=== PATIENT | female | born 1950 | race Caucasian/White ===

== ENCOUNTER 2018-11-27 15:22 | Day surgery (SDC) | payer MEDICARE, OTHER ==
[~2018-11-27] VITALS: Ht 160 cm; Wt 57.2 kg
[2018-11-27] VITALS (9 sets, daily range): BP systolic 115–131; BP diastolic 66–78; PULSE 60–85; RESP 17–18; Ht 160 cm; Wt 57.2 kg
[~2018-11-27 15:22] MED LIST: ALPR0.254 PO; CARI350T PO; DIME25TA PO; ESTR1TAB23 PO; HYDR2TAB3 PO; LEVO25TA PO; LORA0.5T PO; PREG25CA PO; PROG100C11 PO; RISP0.5T3 PO; THIO100T PO; THY90 PO; THYR120T PO; TRAM50TA2 PO; UDLOM GTB; VALA500T PO
[2018-11-27] MEDS ORDERED: HYDROmorphONE 0.5 MG/0.5 ML SYG IV STA (16:17)
[2018-11-27] MEDS ORDERED: HYDROmorphONE 1 MG/ML SYG IV STA (16:50)
[2018-11-27] MEDS ORDERED: ALBUTEROL 0.083% (NEB) 2.5 MG/3 ML AMP HHN PRN (20:00)
[2018-11-27] MEDS ORDERED: MEPERIDINE 25 MG INJ IV PRN (20:00)
[2018-11-27] MEDS ORDERED: DIPHENHYDRAMINE 50 MG INJ IV PRN (20:00)
[2018-11-27] MEDS ORDERED: MIDAZOLAM 1 MG/ML 2 ML INJ IV PRN (20:00)
[2018-11-27] MEDS ORDERED: hydrALAzine 20 MG INJ IV PRN (20:00)
[2018-11-27] MEDS ORDERED: FENTAnyl 50 MCG/ML VIAL IV PRN ×3 (20:00)
[2018-11-27] MEDS ORDERED: IPRATROPIUM (NEB) 0.5 MG/2.5 ML AMP HHN PRN (20:00)
[2018-11-27] MEDS ORDERED: HYDROmorphONE 1 MG/5 ML IV SYRINGE IV PRN ×3 (20:00)
[2018-11-27] MEDS ORDERED: LABETALOL HCL 20MG INJ IV PRN (20:00)
[2018-11-27] MEDS ORDERED: TRIMETHOBENZAMIDE 100 MG/ML VIAL IM PRN (20:00)
[2018-11-27] MEDS ORDERED: EPHEDrine 25 MG/5 ML SYG IV PRN (20:00)
[2018-11-27] MEDS ORDERED: OXYCODONE/ACETAMINOPHEN (5/325) TAB PO PRN ×2 (20:00)
[2018-11-27] MEDS ORDERED: ONDANSETRON 4 MG INJ IV PRN (20:00)
[2018-11-27] MEDS ORDERED: PROPOFOL 200 MG INJ ONE (20:21)
[2018-11-27] MEDS ORDERED: CEFAZOLIN 1 GM INJ ONE (20:21)
[2018-11-27] MEDS ORDERED: ONDANSETRON 4 MG INJ ONE (20:21)
[2018-11-27] MEDS ORDERED: MIDAZOLAM 1 MG/ML 2 ML INJ ONE (20:21)
[2018-11-27] MEDS ORDERED: LIDOCAINE 2% (SDV) 5 ML INJ ONE (20:21)
[2018-11-27] MEDS ORDERED: BUPIVACAINE 0.5% (SDV) 30 ML INJ ONE (20:27)
== END 2018-11-27 22:34 | disposition home or self-care (01) ==
LOC: SDS 15:22
PROVIDERS: ATTEND Orthopaedic Surgery Hand Surgery
DX: G56.01 Carpal tunnel syndrome, right upper limb (principal)
CPT/HCPCS: 71045; J0690; J1170; J2250; J2405; J3010